=== PATIENT | male | born 1990 ===

== ENCOUNTER 2018-11-02 21:23 | Emergency (ER) | payer SELFPAY ==
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
== END 2018-11-02 22:58 ==
LOC: FB.ED 21:23
DX: R41.82 Altered mental status, unspecified (principal)
CPT/HCPCS: 36415; 80048; 85025; 99283; G0480